=== PATIENT | female | born 1985 | race Caucasian/White ===

== ENCOUNTER 2019-04-11 10:12 | Observation (INO) | payer OTHER ==
[~2019-04-11] VITALS: Ht 172.7 cm; Wt 109.0 kg
[~2019-04-11 10:12] MED LIST: IBUP-1222 PO; OXYC-302 PO
[2019-04-11] MEDS ORDERED: PREN1TAB60 PO (10:23)
[2019-04-11] MEDS ORDERED: DOXY25TA18 PO (10:23)
[2019-04-11 10:24] VITALS: BP 112/70
[2019-04-11 11:21] LABS: MICROSCOPIC NOT IND
[2019-04-11 12:02] LABS: RAPID INFLUENZA A Negative (Negative); RAPID INFLUENZA B Negative (Negative)
[2019-04-11 13:31] LABS: FIO2 ROOM AIR %
[2019-04-11 14:45] LABS: BASOPHILS % (AUTO) 0 % (0-1); EOSINOPHILS # (AUTO) 0.02 x10^3/uL (0-0.4); EOSINOPHILS % (AUTO) 0 % (1-7); LYMPHOCYTES # (AUTO) 0.97 x10^3/uL (1-3.4); LYMPHOCYTES % (AUTO) 8 % (22-44); MD NO; MEAN CORPUSCULAR HEMOGLOBIN 32.1 pg (27.0-34.8); MEAN CORPUSCULAR HGB CONC 33.5 g/dL (32.4-35.8); MEAN CORPUSCULAR VOLUME 95.8 fL (80-100); MEAN PLATELET VOLUME 8.3 fL (7.4-10.4); MONOCYTES # (AUTO) 0.45 x10^3/uL (0.2-0.8); MONOCYTES % (AUTO) 4 % (2-9); NEUTROPHILS # (AUTO) 10.55 x10^3/uL (1.8-6.8); NEUTROPHILS % (AUTO) 88 % (42-75); PLATELET COUNT 193 x10^3/uL (130-400); RED BLOOD COUNT 3.78 x10^6/uL (3.82-5.3); RED CELL DISTRIBUTION WIDTH 12.3 % (9.6-15.2)
[2019-04-11 15:18] LABS: ALANINE AMINOTRANSFERASE 13 U/L (12-78); ALBUMIN 2.5 g/dL (3.4-5.0); ANION GAP 14 mmol/L (5-15); CALCIUM 8.8 mg/dL (8.5-10.1); CHLORIDE 107 mmol/L (98-107); CREATININE 0.51 mg/dL (0.55-1.02)
[2019-04-11 15:20] LABS: ALKALINE PHOSPHATASE 103 U/L (45-117); BILIRUBIN,TOTAL 0.5 mg/dL (0.2-1.0); TOTAL PROTEIN 6.6 g/dL (6.4-8.2)
[2019-04-11] MEDS ORDERED: ACETAMINOPHEN 325 MG TABLET PO PRN ×2 (16:30→20:45)
[2019-04-11] MEDS ORDERED: OMNIPAQUE 350 MG/ML, 100ML BOTTLE ONE (16:47)
[2019-04-11] MEDS ORDERED: ACETAMINOPHEN 325 MG TABLET ONE ×2 (16:50→20:47)
[2019-04-11] MEDS ORDERED: BENZONATATE 100 MG CAPSULE PO PRN (17:30)
[2019-04-11] MEDS ORDERED: GUAIFENESIN 100 MG/5 ML, 5ML UDC PO PRN (17:30)
[2019-04-11] MEDS ORDERED: AZITHROMYCIN 500 MG TABLET ONE (17:52)
[2019-04-11] MEDS: AZITHROMYCIN 500 MG TABLET PO SCH (17:56)
[2019-04-11] MEDS ORDERED: DIPHENHYDRAMINE 25 MG CAPSULE PO PRN (20:30)
[2019-04-11] MEDS ORDERED: DIPHENHYDRAMINE 25 MG CAPSULE ONE (20:47)
[2019-04-11] MEDS: SODIUM CHLORIDE FLUSH 3ML SYRINGE IVF SCH (20:51)
[2019-04-11] MEDS ORDERED: AMOXICILLIN 500 MG CAPSULE PO SCH (21:00)
[2019-04-12] MEDS: AMOXICILLIN 500 MG CAPSULE PO SCH ×3 (01:53→18:20)
[2019-04-12] MEDS: SODIUM CHLORIDE FLUSH 3ML SYRINGE IVF SCH (08:10)
[2019-04-12] MEDS ORDERED: AZITHROMYCIN 500 MG TABLET ONE (08:43)
[2019-04-12] MEDS: AZITHROMYCIN 500 MG TABLET PO SCH (08:44)
[2019-04-12] MEDS ORDERED: AMOXICILLIN 500 MG CAPSULE ONE ×3 (09:15→18:18)
[2019-04-12] MEDS ORDERED: AZIT500T PO (18:29)
[2019-04-12] MEDS ORDERED: AZIT250T89 PO (18:39)
[2019-04-12] MEDS ORDERED: AMOX-291 PO ×2 (18:40→18:42)
== END 2019-04-12 19:00 | disposition home or self-care (01) ==
LOC: LDOP 10:12 → LDIP 14:27
PROVIDERS: ADMIT Obstetrics & Gynecology; ATTEND Obstetrics & Gynecology
DX: O99.513 Diseases of the respiratory system complicating pregnancy, third trimester (principal); O99.283 Endocrine, nutritional and metabolic diseases complicating pregnancy, third trimester; O09.523 Supervision of elderly multigravida, third trimester; O99.113 Other diseases of the blood and blood-forming organs and certain disorders involving the immune mechanism complicating pregnancy, third trimester; J06.9 Acute upper respiratory infection, unspecified; J96.01 Acute respiratory failure with hypoxia; E87.4 Mixed disorder of acid-base balance; J18.9 Pneumonia, unspecified organism; D72.829 Elevated white blood cell count, unspecified; Z3A.33 33 weeks gestation of pregnancy
CPT/HCPCS: 36415; 36600; 59025; 71045; 71046; 71275; 80053; 81003; 82803; 83880; 84145; 85025; 87086; 87400; 93005; 99211; G0378; Q0163; Q9967; G0463

== ENCOUNTER 2019-05-28 04:57 | Inpatient (IN) | payer OTHER ==
[~2019-05-28] VITALS: Ht 172.7 cm; Wt 109.0 kg
[~2019-05-28 04:57] MED LIST changes: +AMOX-291 PO; +AZIT250T89 PO; +AZIT500T PO; +DOXY25TA18 PO; +PREN1TAB60 PO
[2019-05-28] MEDS ORDERED: OXYTOCIN 30U/ 0.9% NaCL 500ML 500 ML IV ONE (05:09)
[2019-05-28] MEDS ORDERED: OXYTOCIN 30U/ 0.9% NaCL 500ML 500 ML IV PRN (05:09)
[2019-05-28] MEDS ORDERED: D5%-LACTATED RINGERS 1,000 ML IV SCH (05:09)
[2019-05-28 05:10] VITALS: BP 114/68
[2019-05-28] MEDS ORDERED: TERBUTALINE 1 MG/ML, 1ML IVPush PRN (05:30)
[2019-05-28] MEDS ORDERED: TERBUTALINE 1 MG/ML, 1ML SQ PRN (05:30)
[2019-05-28] MEDS ORDERED: ONDANSETRON 2MG/ML, 2ML IVPush PRN (05:30)
[2019-05-28] MEDS ORDERED: FENTANYL PF 100 MCG/2ML IV PRN (05:30)
[2019-05-28] MEDS: LACTATED RINGERS 1,000 ML IV SCH ×3 (05:31→10:44)
[2019-05-28] MEDS ORDERED: OXYTOCIN 30U/ 0.9% NaCL 500ML 500 ML ONE (05:32)
[2019-05-28] MEDS ORDERED: NEWBORN KIT ONE (05:32)
[2019-05-28] MEDS ORDERED: ONDANSETRON 2MG/ML, 2ML ONE (05:32)
[2019-05-28 05:45] LABS: BASOPHILS # (AUTO) 0.05 x10^3/uL (0-0.1); BASOPHILS % (AUTO) 0 % (0-1); EOSINOPHILS # (AUTO) 0.15 x10^3/uL (0-0.4); EOSINOPHILS % (AUTO) 1 % (1-7); LYMPHOCYTES # (AUTO) 2.88 x10^3/uL (1-3.4); LYMPHOCYTES % (AUTO) 26 % (22-44); MD NO; MEAN CORPUSCULAR HEMOGLOBIN 32.1 pg (27.0-34.8); MEAN CORPUSCULAR HGB CONC 33.8 g/dL (32.4-35.8); MEAN CORPUSCULAR VOLUME 95.1 fL (80-100); MEAN PLATELET VOLUME 8.7 fL (7.4-10.4); MONOCYTES # (AUTO) 0.59 x10^3/uL (0.2-0.8); MONOCYTES % (AUTO) 5 % (2-9); NEUTROPHILS # (AUTO) 7.31 x10^3/uL (1.8-6.8); NEUTROPHILS % (AUTO) 67 % (42-75); PLATELET COUNT 216 x10^3/uL (130-400); RED BLOOD COUNT 4.08 x10^6/uL (3.82-5.3); RED CELL DISTRIBUTION WIDTH 13.4 % (9.6-15.2)
[2019-05-28] MEDS ORDERED: FENTANYL/BUPIV./NS/PF 250 ML EPIDCONT SCH ×2 (05:48→08:32)
[2019-05-28] MEDS ORDERED: FENTANYL PF 500 MCG, BUPIVACAINE/PF 0.5%, 30ML 62.5 ML in SODIUM CHLORIDE 0.9% 177.5 ML EPIDCONT SCH (06:00)
[2019-05-28] MEDS ORDERED: BUPIVACAINE 0.25% ONE (07:11)
[2019-05-28] MEDS ORDERED: FENTANYL PF 100 MCG/2ML ONE (07:11)
[2019-05-28] MEDS ORDERED: LIDOCAINE/PF 1.5%-EPI 1:200K, 30ML ONE (07:13)
[2019-05-28] MEDS ORDERED: EPHEDRINE 50 MG/ML, 1ML ONE (07:13)
[2019-05-28] MEDS ORDERED: LACTATED RINGERS 1,000 ML IV SCH (08:32)
[2019-05-28] MEDS ORDERED: LACTATED RINGERS 1,000 ML IVBOLUS PRN (09:00)
[2019-05-28] MEDS ORDERED: IBUPROFEN 600 MG TABLET ONE (14:25)
[2019-05-28] MEDS: IBUPROFEN 600 MG TABLET PO PRN (14:30)
[2019-05-28] MEDS: OXYTOCIN 30U/ 0.9% NaCL 500ML 500 ML IV SCH (14:31)
[2019-05-28 15:00] VITALS: BP 114/68
[2019-05-28] MEDS ORDERED: SIMETHICONE 80 MG CHEW TAB PO PRN (15:00)
[2019-05-28] MEDS ORDERED: METOCLOPRAMIDE 5 MG/ML, 2ML IV PRN (15:00)
[2019-05-28] MEDS ORDERED: OXYcodone/APAP 5/325MG TABLET PO PRN (15:00)
[2019-05-28] MEDS ORDERED: MISOPROSTOL 200 MCG TABLET PR PRN (15:00)
[2019-05-28] MEDS: DOCUSATE 100 MG CAPSULE PO PRN (20:19)
[2019-05-28] MEDS: OXYcodone/APAP 5/325MG TABLET PO PRN ×2 (20:20→21:55)
[2019-05-28 20:24] LABS: MD NO
[2019-05-28 20:25] VITALS: BP 111/76
[2019-05-28 20:25] LABS: BASOPHILS # (AUTO) 0.06 x10^3/uL (0-0.1); BASOPHILS % (AUTO) 0 % (0-1); EOSINOPHILS # (AUTO) 0.03 x10^3/uL (0-0.4); EOSINOPHILS % (AUTO) 0 % (1-7); LYMPHOCYTES # (AUTO) 2.33 x10^3/uL (1-3.4); LYMPHOCYTES % (AUTO) 16 % (22-44); MEAN CORPUSCULAR HGB CONC 33.6 g/dL (32.4-35.8); MEAN CORPUSCULAR VOLUME 95.2 fL (80-100); MEAN PLATELET VOLUME 8.4 fL (7.4-10.4); MONOCYTES # (AUTO) 0.67 x10^3/uL (0.2-0.8); MONOCYTES % (AUTO) 5 % (2-9); NEUTROPHILS # (AUTO) 11.51 x10^3/uL (1.8-6.8); NEUTROPHILS % (AUTO) 79 % (42-75); PLATELET COUNT 188 x10^3/uL (130-400); RED BLOOD COUNT 3.76 x10^6/uL (3.82-5.3); RED CELL DISTRIBUTION WIDTH 13.5 % (9.6-15.2)
[2019-05-29] MEDS: OXYTOCIN 30U/ 0.9% NaCL 500ML 500 ML IV SCH ×2 (00:31→10:31)
[2019-05-29 00:53] VITALS: BP 123/75
[2019-05-29] MEDS: OXYcodone/APAP 5/325MG TABLET PO PRN ×2 (04:02→10:47)
[2019-05-29 04:16] VITALS: BP 117/69
[2019-05-29 07:20] VITALS: BP 114/78
[2019-05-29] MEDS: IBUPROFEN 600 MG TABLET PO PRN (08:46)
[2019-05-29] MEDS: DOCUSATE 100 MG CAPSULE PO PRN (08:46)
[2019-05-29] MEDS ORDERED: PRENATAL VIT/IRON/FA 1 EACH TABLET PO SCH (09:00)
[2019-05-29] MEDS ORDERED: OXYC-302 PO (10:47)
[2019-05-29] MEDS ORDERED: IBUP-1222 PO (10:53)
== END 2019-05-29 14:16 | disposition home or self-care (01) | DRG 807 ==
LOC: LDIP 04:57 → 2NW 14:32
PROVIDERS: ADMIT Obstetrics & Gynecology; ATTEND Obstetrics & Gynecology
PROC: 10E0XZZ Delivery of Products of Conception, External Approach (ICD-10-PCS; principal; 2019-05-28)
PROC: 0KQM0ZZ Repair Perineum Muscle, Open Approach (ICD-10-PCS; 2019-05-28)
PROC: 3E0R3BZ Introduction of Anesthetic Agent into Spinal Canal, Percutaneous Approach (ICD-10-PCS; 2019-05-28)
PROC: 00HU33Z Insertion of Infusion Device into Spinal Canal, Percutaneous Approach (ICD-10-PCS; 2019-05-28)
PROC: 10H07YZ Insertion of Other Device into Products of Conception, Via Natural or Artificial Opening (ICD-10-PCS; 2019-05-28)
DX: O69.1XX0 Labor and delivery complicated by cord around neck, with compression, not applicable or unspecified (principal); Z37.0 Single live birth; Z3A.40 40 weeks gestation of pregnancy; O70.1 Second degree perineal laceration during delivery
CPT/HCPCS: 36415; J3490; S0020; 82803; 85025; 86592; 86850; 86900; G0378; J2405; J3010; J2590; J7050; J7120